=== PATIENT | male | born 1970 | race African-American/Black ===

== ENCOUNTER 2023-10-29 10:32 | Emergency (ER) | payer MEDICAID ==
[~2023-10-29] VITALS: Ht 175.3 cm; Wt 75.0 kg
[~2023-10-29 10:32] MED LIST: IBUP-2029 MT; ONDA4TAB50 MT
[2023-10-29 11:01] VITALS: O2SAT 99
[2023-10-29] MEDS ORDERED: TUSSL MT (12:33)
[2023-10-29 13:40] VITALS: BP 139/87; PULSE 82; RESP 18; TEMP 98.6
== END 2023-10-29 13:40 | disposition home or self-care (01) ==
LOC: ER 10:32
DX: S63.105A Unspecified dislocation of left thumb, initial encounter (principal); W18.30XA Fall on same level, unspecified, initial encounter; Y93.89 Activity, other specified; Y92.89 Other specified places as the place of occurrence of the external cause; Y99.8 Other external cause status
CPT/HCPCS: 26770; 71045; 73130; 73140; 99284